=== PATIENT | female | born 1980 | race Caucasian/White ===

== ENCOUNTER 2017-10-12 12:55 | Emergency (ER) | payer OTHER, MEDICAID ==
[~2017-10-12] VITALS: Ht 157.5 cm; Wt 77.1 kg
[~2017-10-12 12:55] MED LIST: ADDERALL 20 MG20 M1 PO; ERYTHROMYCIN E3.5 G3 OPHTHALMIC; HYDROCODONE-AP1 EAC6 PO; HYDROCODONE-APA1 TA1 PO; OMEPRAZOLE20 MG PO
[2017-10-12] MEDS ORDERED: IBUPROFEN 800800 MG PO (14:45)
[2017-10-12] MEDS ORDERED: NORCO 5-325 TA1 EACH PO (14:45)
[2017-10-12 15:15] VITALS: BP 113/61
== END 2017-10-12 15:16 | disposition home or self-care (01) ==
LOC: M.ERS 12:55
DX: M25.512 Pain in left shoulder (principal); M79.89 Other specified soft tissue disorders; F90.9 Attention-deficit hyperactivity disorder, unspecified type; F17.210 Nicotine dependence, cigarettes, uncomplicated; Z88.5 Allergy status to narcotic agent